=== PATIENT | male | born 1960 | race Caucasian/White ===

== ENCOUNTER 2017-07-01 12:01 | Emergency (ER) | payer OTHER ==
[~2017-07-01] VITALS: Ht 188 cm; Wt 122.9 kg
[~2017-07-01 12:01] MED LIST: ACCOLATE10 MG PO; ADVAIR 100-501 EACH IH; ADVAIR 500/501 DISK IH; AMLODIPINE BES2.5 MG PO; ATORVASTATIN CA20 MG PO; BP MED; CEPHALEXIN500 MG PO; COMBIVENT INH14.7 GM IH; COMBIVENT RESPIM4 GM IH; FENOFIBRATE160 M1 PO; IBUPROFEN200 M1 PO; MONTELUKAST SOD10 MG PO; PROAIR HFA8.5 GM IH
[2017-07-01 12:03] VITALS: BP 157/86
[2017-07-01] MEDS ORDERED: NAPROSYN500 MG PO ×2 (12:36→12:40)
== END 2017-07-01 12:55 | disposition home or self-care (01) ==
LOC: EME 12:01
DX: M17.11 Unilateral primary osteoarthritis, right knee (principal); I10 Essential (primary) hypertension; E78.5 Hyperlipidemia, unspecified; J45.909 Unspecified asthma, uncomplicated; F17.200 Nicotine dependence, unspecified, uncomplicated
CPT/HCPCS: 73564; 99281; 99284

== ENCOUNTER 2017-11-09 09:19 | Emergency (ER) | payer OTHER ==
[~2017-11-09] VITALS: Ht 188 cm; Wt 129.8 kg
[~2017-11-09 09:19] MED LIST changes: +NAPROSYN500 MG PO
[2017-11-09] MEDS ORDERED: PREDNISONE20 MG PO (11:26)
[2017-11-09 11:32] VITALS: BP 147/74
== END 2017-11-09 11:32 | disposition left against medical advice (07) ==
LOC: EME 09:19
DX: G56.01 Carpal tunnel syndrome, right upper limb (principal); M17.0 Bilateral primary osteoarthritis of knee; F17.200 Nicotine dependence, unspecified, uncomplicated
CPT/HCPCS: 73110; 73130; J7512